=== PATIENT | male | born 1965 | race Caucasian/White ===

== ENCOUNTER 2022-04-03 12:44 | Emergency (ER) | payer BC, SELFPAY | END 2022-04-03 14:19 | disposition home or self-care (01) | LOC: ERS 12:44 | DX: U07.1 COVID-19 (principal) | CPT/HCPCS: 99283; U0003; U0005 ==

== ENCOUNTER 2023-11-15 18:59 | Emergency (ER) | payer BC, SELFPAY ==
[2023-11-15 23:04] LABS: Amphetamine Not Detected (NotDetected); Barbiturates Screen Not Detected (NotDetected); Benzodiazepine Screen Not Detected (NotDetected); Cocaine Metabolite Screen Not Detected (NotDetected); Methadone Not Detected (NotDetected); Methamphetamine Not Detected (NotDetected); Opiate Screen Not Detected (NotDetected); Oxycodone Screen Not Detected (NotDetected); Phencyclidine (PCP) Not Detected (NotDetected); THC/Cannabinoid Screen Not Detected (NotDetected); Tricyclic Screen Not Detected (NotDetected)
[2023-11-15 23:18] LABS: Bilirubin Negative (Negative); Blood, Urine 3+ (Negative); CAUTI Indications for Culture Pelvic or flank pain; Clarity Turbid (Clear); Glucose, Urine (Dipstick) Normal (Negative); Ketone, Urine Negative (Negative); Leukocyte 500 Leu/uL (Negative); Nitrite Negative (Negative); Protein, Urine (Dipstick) 100 mg/dL (Neg-Trace); RBC/HPF Greater than 50 HPF (0-3); Specific Gravity, Urine 1.015 (1.002-1.036); Squamous Epithelial None Seen HPF (0-3); Urobilinogen Normal mg/dL (Less than 2); WBC/HPF Greater than 50 HPF (0-3)
[2023-11-15 23:19] LABS: Bacteria/HPF 1+ HPF (None Seen)
[2023-11-15 23:20] LABS: Urine Culture Reflex Yes Yes
[2023-11-15 23:29] LABS: ALT (SGPT) 6 U/L (8-55); AST (SGOT) 14 U/L (5-34); Albumin 3.7 g/dL (3.5-5.0); Alkaline Phosphatase 53 U/L (40-110); Anion Gap 14 mmol/L (10-20); BUN (Urea Nitrogen) 17 mg/dL (8.4-25.7); Bilirubin, Total 0.7 mg/dL (0.2-1.2); Calc. Creatinine Clearance 0 mL/min (70-130); Calcium 8.8 mg/dL (7.8-10.44); Carbon Dioxide 16 mmol/L (22-29); Chloride 109 mmol/L (98-107); Estimated GFR 89; Globulin 4.1 g/dL (2.4-3.5); Glucose 86 mg/dL (70-105); Protein, Total 7.8 g/dL (6.0-8.3); Sodium 135 mmol/L (136-145)
[2023-11-15 23:37] LABS: Hematocrit 26.7 % (42.0-52.0); Hemoglobin 7.2 g/dL (14.0-18.0); Mean Corpuscular Hemoglobin 15.1 pg (27.0-31.0); Platelet Count 256 10x3/uL (130-400); RBC Distribution Width 22.5 % (11.5-14.5); Red Blood Cell (RBC) Count 4.77 mill/uL (4.70-6.10)
[2023-11-15] MEDS ORDERED: Ciprofloxacin 500 MG TAB ONE (23:46)
[2023-11-15] MEDS ORDERED: Lorazepam 1 MG TAB ONE (23:47)
[2023-11-15 23:51] LABS: Troponin I Less than 0.010 ng/mL (< 0.028)
[2023-11-16 00:04] LABS: Anisocytosis SLIGHT = 6-15 cells HPF (0-5); Eosinophils 1 % (0-10); Hypochromia MODERATE=16-30 cells HPF (0-5); Large Platelets 8.1 % (0-5); Lymphocytes 62 % (21-51); Metamyelocyte 1 % (0-0); Microcytosis MODERATE=15-30 cells HPF (0-5); Monocytes 5 % (0-10); Neutrophil 31 % (42-75); Platelet Adequacy Comment Platelets Normal; Polychromasia SLIGHT = 2-3 cells HPF (0-2); Reflex for Review?? YES; Smudge Cells 29.3 %; Tear Drops SLIGHT = 2-5 cells HPF (0-1)
[2023-11-16 00:35] LABS: Acetaminophen Less than 10 mcg/mL (10.0-30.0); Alcohol Less than 10.0 mg/dL (Less than 10); Salicylate Less than 8.0 mg/dL (15.0-30.0)
== END 2023-11-16 00:23 | disposition home or self-care (01) ==
LOC: ERS 18:59
DX: F41.9 Anxiety disorder, unspecified (principal); D64.9 Anemia, unspecified; N39.0 Urinary tract infection, site not specified; B20 Human immunodeficiency virus [HIV] disease; F17.200 Nicotine dependence, unspecified, uncomplicated
CPT/HCPCS: 36415; 71045; 80053; 80306; 80307; 81001; 84443; 84484; 85025; 85060; 87086; 93005